=== PATIENT | female | born 1960 | race Caucasian/White ===

== ENCOUNTER → 2016-05-21 | Outpatient (CLI) | payer OTHER ==
[~2016-05-21] MED LIST: SIMVASTATIN40 MG PO
== END ==
LOC: MC.RAD 10:16
DX: Z12.31 Encounter for screening mammogram for malignant neoplasm of breast (principal); R92.8 Other abnormal and inconclusive findings on diagnostic imaging of breast

== ENCOUNTER → 2016-05-22 | Outpatient (CLI) | payer OTHER | LOC: MC.RAD 10:30 | DX: R92.8 Other abnormal and inconclusive findings on diagnostic imaging of breast (principal) ==

== ENCOUNTER → 2017-06-22 | Outpatient (CLI) | payer OTHER | LOC: MC.RAD 11:37 | DX: Z12.31 Encounter for screening mammogram for malignant neoplasm of breast (principal) ==

== ENCOUNTER → 2018-06-30 | Outpatient (CLI) | payer BC | LOC: MC.RAD 14:40 | DX: Z12.31 Encounter for screening mammogram for malignant neoplasm of breast (principal) ==

== ENCOUNTER → 2020-02-20 | Outpatient (CLI) | payer BC | LOC: MC.RAD 08:36 | DX: Z12.31 Encounter for screening mammogram for malignant neoplasm of breast (principal) ==

== ENCOUNTER 2021-02-13 10:27 | Outpatient (CLI) | payer BC ==
[~2021-02-13] VITALS: Ht 172.7 cm; Wt 82.7 kg
[2021-02-13 10:21] VITALS: BP 110/75; PULSE 88; TEMP 98.9
[~2021-02-13 10:27] MED LIST changes: +B-121000 MCG PO; +FLOMAX 0.40.4 MG/CAP PO; +LEXAPRO 10MG10 MG PO; +LIPITOR 10MG10 MG PO; +NIASPAN 500MG500 MG PO; +SYNTHROID0.075 MG/T PO; +VITAMIN D3400 I1 PO; +ZYRTEC 10MG10 MG PO
[2021-02-13 10:30] VITALS: BP 104/77; PULSE 72
[2021-02-13 10:45] VITALS: BP 103/61; PULSE 74
[2021-02-13 11:15] VITALS: BP 99/68; PULSE 72
[2021-02-13 11:45] VITALS: BP 100/67; PULSE 63
== END 2021-02-13 13:39 ==
LOC: EUO 10:27
DX: U07.1 COVID-19 (principal)
CPT/HCPCS: Q0244